=== PATIENT | male | born 1990 | race Hispanic/Latino ===

== ENCOUNTER 2017-01-10 21:29 | Emergency (ER) | payer OTHER ==
[~2017-01-10 21:29] MED LIST: OXYC5TAB72 PO
== END 2017-01-10 21:30 | disposition left against medical advice (07) ==
LOC: SED 21:29
DX: R07.81 Pleurodynia (principal); Z53.21 Procedure and treatment not carried out due to patient leaving prior to being seen by health care provider

== ENCOUNTER 2017-03-23 07:13 | Emergency (ER) | payer OTHER ==
[2017-03-23 07:15] VITALS: BP 99/63; PULSE 67; RESP 14; O2SAT 100
--- NOTE | 2017-03-23 07:41 | ED.REPORT ---
HPI-Eye Problem Date of Service Mar 23, 2017 ED Provider: Martin Pereira MD Pt is an otherwise healthy 26 year old male who presents to the ED complaining of left eye swelling onset yesterday night. He c/o associated pain and blurred vision in his left eye. He denies itching, eye trauma, and any other symptoms. The pt denies having a history of similar symptoms and has not been around anyone ill recently. Pt reports that he woke up with increased right eye swelling with his eye "glued shut", prompting him to present to the ED. Nursing Notes Stated Complaint: SWOLLEN LEFT EYE Chief Complaint: Eye Nursing Notes Reviewed: Yes ([facility], [employer] not reconciled) Allergies: Coded Allergies: ibuprofen (Verified Allergy, Severe, throat swelling, 11/30/15) Scheduled Cephalexin (Cephalexin) 500 Mg Tablet 500 MG PO TID Erythromycin Ophth Oint (Erythromycin Ophth Oint) 3.5 Gm Oint...g. 1 APPL OP TID Scheduled PRN Hydrocodone-Acetaminophen 5-325 mg (Hydrocodone-Acetaminophen 5-325 mg) 1 Each Tablet 1 TABLET PO Q4H PRN PRN For Pain oxyCODONE (oxyCODONE) 5 Mg Tablet 5 MG PO Q4H PRN PRN For Moderate Pain General Time Seen by MD: 07:40 Chief Complaint Left eye affected Hx Obtained From: Patient Arrived By: Walk-in Sudden in Onset?: No Onset Occurred: 5 - 8 hours ago Symptom Duration: Since onset Location: : Eye left Quality: Painful Severity: Current: Moderate Severity: Maximum: Moderate Recent Healthcare: No recent doctor visit, No recent hospitalization Similar Sx Previous: No Past Medical History Past Medical History Reports: GERD Past Surgical History Reports: Appendectomy Smoking History Former Smoker Social History Alcohol Use: Denies alcohol use Drug Use: Denies drug use Occupation lives with family Ambulatory Status Independent Review of Systems + eye swelling left Eyes: Reports: Blurred left, Discharge left, Eye pain left Skin: Denies Itching Complete sys rev & neg: except as marked. Physical Exam Initial Vital Signs Vital Signs (First) Date Time Temp Pulse Resp B/P Pulse Ox O2 Delivery O2 Flow Rate FiO2 03/23/17 07:15 36.8 67 14 99/63 100 Room Air Initial VS: Reviewed, Vital signs normal Neck: Supple, Full range of motion Respiratory: Breath sounds normal, Clear to auscultation, No respiratory distress Cardiovascular: Regular rate & rhythm, Heart sounds normal, Intact distal pulses Abdomen / GI: Soft, Non-tender Extremities: Vascular intact, Neuro intact Skin: Warm, Dry, No cyanosis Neurologic: Alert, Oriented, Nonfocal Psychiatric: Mood/affect normal, Behavior normal EYES: Marked swelling of upper eyelid with erythema. No hordeolum. Pain with lid eversion. Scerolintal drainage, no periacinal node. General/Constitutional: Awake, Alert, Cooperative Procedures Slit Lamp Exam Normal. Time: 08:02 Procedure Performed by: ED physician Which Eye: Left Re-Eval/Medical Decision Med Decision/Clinical Course This is a 26-year-old healthy male who awoke with his left eye glued shut, and a swollen painful upper eyelid. He denies any trauma or known injury. Denies ill contacts. Does not wear contacts and has noted complaints. On exam he has blepharitis with erythema swelling and pain of the left upper eyelid. There is no hordeolum, lid eversion was negative for abscess or foreign body. I did not actually appreciate any rupinder corneal injection, floor seen in slit lamp eye exam is normal. While he reports having his eyelid glued and he reports washing out his eye, there is not actual mucopurulent drainage than I can appreciate in his ED eval. He has no preauricular nodes, no other signs of cellulitis or abscess. The rest of exam is normal. Given the significant swelling of the eyelid, the patient is receiving both oral antibiotics with cephalexin, as well as topical topical with erythromycin ointment. he is being discharged in good condition. Routine and return precautions reviewed. Source of Hx: Old records Re-Evaluation/Progress : Time of Eval: 08:04 Re-Evaluation/Progress Note: Pt rechecked. Informed pt of plan for discharge. Pt understands and agrees with plan for discharge. F/U instructions and RTER warnings given. All questions addressed. Differential Diagnosis: Positive: Conjunctivitis, bacterial, Negative: Acute vision loss, Angle closure glaucoma, Burn, chemical, Central retinal art occl, Central retinal vein occl, Foreign body, conjunctiva, Foreign body, corneal, Foreign body, intraocular, Foreign body, lid, Globe rupture, Orbital cellulitis, Periorbital cellulitis, Preseptal cellulitis, Pterygium Counseled Regarding: Diagnosis, Need for follow-up, When/why to return to ED Discharge & Departure Primary Impression: Blepharitis of eyelid of left eye Blepharitis type: unspecified type Eyelid: upper Qualified Code: H01.004 - Unspecified blepharitis left upper eyelid Disposition: Home Discharge Condition All VS Reviewed: Yes Condition: Stable Additional Instructions: 1. You have an infection of the left eye lid. 2. Take the antibiotic cephalexin 500mg three times a day for 7-10 days (you can stop after 7 days if all symptoms are resolved). 3. Put 1/4 inch erythromycin ointment in the left eye three times a day for 5 days. 4. Take ibuprofen 400mg three time a day for pain as needed. 5. If needed for more severe pain take hydrocodone/APAP 5/325 1-2 tabs up to every 4-6 hours. NOTE: this medication contains a narcotic and causes drowsiness. NO driving for at least 4 hours after taking. 6. Symptoms are expected to improve rapidly over next several days. Return if new or worsening symptoms. Referrals: Santhosh Lino MD (PCP) Scribe Attestation Portions of this note were transcribed by Flavia Cali. I, Dr. Pereira personally performed the history, physical exam and medical decision-making; I reviewed and confirmed the accuracy of the information in the transcribed note. Signed by: Ellis Garza, 03/23/17 and 08:50. copies to: Santhosh Lino MD, Matthew F MD Mar 23, 2017 07:41 Flavia Parra Mar 23, 2017 07:55
[2017-03-23] MEDS ORDERED: Tetracaine 0.5% 4 mL Ophthalmic Solution LEFT_EYE ONE (07:45)
[2017-03-23] MEDS ORDERED: 0.9% Sodium Chloride Inhalation Solution LEFT_EYE ONE (07:45)
[2017-03-23] MEDS ORDERED: Erythromycin 0.5% 1 Gm Ophthalmic Ointment LEFT_EYE ONE (07:45)
[2017-03-23] MEDS ORDERED: Fluorescein 0.6 mg Ophthalmic Strip LEFT_EYE ONE (07:45)
[2017-03-23] MEDS ORDERED: CEPH500T PO (08:20)
[2017-03-23] MEDS ORDERED: HYDR-4003 PO (08:20)
[2017-03-23] MEDS ORDERED: ERYT1OIN7 OP (08:23)
[2017-03-23 08:46] VITALS: BP 98/53; PULSE 61
== END 2017-03-23 08:47 | disposition home or self-care (01) ==
LOC: SED 07:13
DX: H01.004 Unspecified blepharitis left upper eyelid (principal); Z88.6 Allergy status to analgesic agent; K21.9 Gastro-esophageal reflux disease without esophagitis; Z87.891 Personal history of nicotine dependence

== ENCOUNTER 2017-04-04 04:27 | Emergency (ER) | payer OTHER ==
[~2017-04-04] VITALS: Ht 185.4 cm; Wt 68.2 kg
[~2017-04-04 04:27] MED LIST changes: +CEPH500T PO; +ERYT1OIN7 OP; +HYDR-4003 PO
[2017-04-04 04:31] VITALS: BP 107/72; PULSE 78; RESP 17; O2SAT 98
--- NOTE | 2017-04-04 04:48 | ED.REPORT ---
HPI-Dental/Mouth Prob Date of Service Apr 04, 2017 ED Provider: Escobar Rosa MD A 26 year old male with a history of pulled teeth presents to the ED complaining of a toothache. This began last night and is accompanied by left- sided jaw pain and left cheek swelling. The pt believes that the affected tooth is his left bottom molar or wisdom tooth. He has already had two of his teeth on the lower left side pulled, but has been unable to see his dentist yet for this pain. Nursing Notes Stated Complaint: L CHEEK SWOLLEN Chief Complaint: Dental Nursing Notes Reviewed: Yes Allergies: Coded Allergies: ibuprofen (Verified Allergy, Severe, throat swelling, 11/30/15) Scheduled Cephalexin (Cephalexin) 500 Mg Tablet 500 MG PO TID Erythromycin Ophth Oint (Erythromycin Ophth Oint) 3.5 Gm Oint...g. 1 APPL OP TID Scheduled PRN Hydrocodone-Acetaminophen 5-325 mg (Hydrocodone-Acetaminophen 5-325 mg) 1 Each Tablet 1 TABLET PO Q4H PRN PRN For Pain oxyCODONE (oxyCODONE) 5 Mg Tablet 5 MG PO Q4H PRN PRN For Moderate Pain General Time Seen by MD: 04:46 Chief Complaint Tooth pain Hx Obtained From: Patient Arrived By: Walk-in Symptom Duration: Since onset Recent Healthcare: No recent hospitalization, Recent doctor visit Similar Sx Previous: No Past Medical History Past Medical History GI ulcers pulled teeth Reports: GERD Past Surgical History EGD for GI ulcers Reports: Appendectomy Smoking History Former Smoker Social History Alcohol Use: Denies alcohol use Drug Use: Denies drug use Occupation lives with family Ambulatory Status Independent Review of Systems Review of Systems Note: left cheek swelling Ears / Nose / Throat: Reports: Toothache Respiratory: Denies: Non-productive cough, Shortness of breath GI: Denies: Abdominal pain Complete sys rev & neg: except as marked. Cardiovascular: Denies: Chest pain Musculoskeletal: Denies: Back pain, Neck pain Physical Exam Initial Vital Signs Vital Signs (First) Date Time Temp Pulse Resp B/P Pulse Ox O2 Delivery O2 Flow Rate FiO2 04/04/17 04:31 36.7 78 17 107/72 98 Room Air Initial VS: Reviewed, Vital signs normal ENT: Airway patent, Mucous membranes moist tooth #17 appears infected teeth #18 and #19 missing Neck: Atraumatic, Supple, Full range of motion General/Constitutional: Awake, Alert Head / Eyes: Atraumatic, Normocephalic, PERRL, EOMI Respiratory / Chest: Atraumatic, Breath sounds NL, Breath sounds = bilat, No respiratory distress Cardiovascular: Heart rate NL, Regular rhythm, Heart sounds NL Neurologic: Oriented X3, Speech NL, No motor deficits, No sensory deficits Abdomen: Atraumatic, Soft, Non-tender Back: Atraumatic, Full range of motion Upper Extremity / MS: Atraumatic, Full range of motion Lower Extremity / Pelvis / MS: Atraumatic, Full range of motion Skin: Color NL, No rash, Warm, Dry Psychiatric: Affect NL, Mood NL Re-Eval/Medical Decision Med Decision/Clinical Course Left lower jaw dental abscess without evidence of extension into the floor of the mouth or into the pharynx. Started on antibiotics and referred back to [facility] dental. Source of Hx: Old records Re-Evaluation/Progress : Time of Eval: 04:46 Patient Status: Condition improved Re-Evaluation/Progress Note: Pt informed of the diagnosis and plan for discharge during the initial interview. The pt understands and agrees with the plan. All questions are addressed at this time. Counseled Regarding: Diagnosis, Need for follow-up, When/why to return to ED Discharge & Departure Primary Impression: Dental abscess Disposition: Home Discharge Condition All VS Reviewed: Yes Condition: Stable Patient Instructions: Dental Abscess (ED) Additional Instructions: Penicillin 500 mg 3 times a day, #30 dispensed. Follow up at [facility] today for definitive dental treatment. Referrals: Santhosh Lino MD (PCP) Scribe Attestation Portions of this note were transcribed by Angelika Pennington. I, Dr. Rosa personally performed the history, physical exam and medical decision-making; I reviewed and confirmed the accuracy of the information in the transcribed note. Signed by: Ellis Garcia, 04/04/2017 and 0509. copies to: Santhosh Lino MD, Howard L MD Apr 04, 2017 04:48 ANGELIKA PENNINGTON Apr 04, 2017 04:51
[2017-04-04 05:08] VITALS: BP 117/57; PULSE 79; O2SAT 98
[2017-04-04] MEDS ORDERED: _Penicillin VK 500 mg Tablet PO SCH (08:30)
== END 2017-04-04 05:08 | disposition home or self-care (01) ==
LOC: SED 04:27
DX: K04.7 Periapical abscess without sinus (principal); K08.409 Partial loss of teeth, unspecified cause, unspecified class; K21.9 Gastro-esophageal reflux disease without esophagitis; Z87.891 Personal history of nicotine dependence; Z88.6 Allergy status to analgesic agent